=== PATIENT | female | born 1955 | race Caucasian/White ===

== ENCOUNTER 2016-12-24 12:58 | Emergency (ER) | payer BC ==
[~2016-12-24] VITALS: Ht 152.4 cm; Wt 86.0 kg
[~2016-12-24 12:58] MED LIST: LEVO100T48 PO; PRLSR20 PO
[2016-12-24 13:00] VITALS: TEMP 36.7; Ht 152.4 cm; Wt 86.0 kg
[2016-12-24] MEDS ORDERED: LEVO75TA5 PO (15:23)
[2016-12-24] MEDS ORDERED: SERT50TA PO (15:23)
[2016-12-24] MEDS ORDERED: ASPIRIN 324 MG CHEW PO STA (15:25)
[2016-12-24 15:59] VITALS: O2SAT 97
[2016-12-24 16:12] LABS: BASO % 0.4 %; BASO ABS # 0.03 K/uL (0-0.2); COMPLETE YES; EOS % 0.7 %; HEMATOCRIT 39.4 % (37-47); IG% 0.1 %; LYMPH % 28.3 %; LYMPH ABS # 2.03 K/uL (1.2-3.4); MEAN CELL VOLUME 85.8 fL (80-100); MEAN CORPUSCULAR HEMOGLOBIN 28.5 pg (25-34); MEAN CORPUSCULAR HGB CONC 33.2 g/dl (32-36); MONO % 5.7 %; NEUT % 64.8 %; PLATELET COUNT 193 K/uL (130-400); RED BLOOD COUNT 4.59 M/uL (4.2-5.4); WHITE BLOOD COUNT 7.17 K/uL (4.8-10.8)
[2016-12-24 16:15] LABS: POINT OF CARE TROPONIN I 0.01 ng/ml (0-0.045)
[2016-12-24 16:23] LABS: PROTHROMBIN TIME (PATIENT) 10.7 SECONDS (9.0-12.0)
--- NOTE | 2016-12-24 16:39 | DIAGNOSTIC IMAGING REPORT ---
CHEST 2 VIEWS ROUTINE CLINICAL HISTORY: Atypical chest pain COMPARISON STUDY: No previous studies for comparison. FINDINGS: The cardiac and mediastinal contours are normal. There is no evidence of focal pulmonary consolidation. There is no evidence of failure. No pleural effusions are visualized.[ There are minor right basilar atelectatic changes. IMPRESSION: No active disease in the chest. Electronically signed by: Reynaldo Wells M.D. 12/24/2016 4:37 PM Dictated Date/Time: 12/24/2016 4:37 PM
[2016-12-24 16:40] LABS: BUN/CREATININE RATIO 8.8 (10-20); CALCIUM 9.4 mg/dl (8.5-10.1); CREATININE 0.75 mg/dl (0.60-1.20); POTASSIUM 3.9 mmol/L (3.5-5.1)
[2016-12-24 16:51] LABS: ALB/GLOB RATIO 1.1 (0.9-2); CKMB/CK RATIO 1.6 (0-3.0); THYROID STIMULATING HORMONE 0.156 uIu/ml (0.300-4.500)
[2016-12-24] MEDS ORDERED: KETOROLAC TROMETHAMINE 30 MG/ML VIAL IV STA (17:37)
[2016-12-24] MEDS ORDERED: DIAZEPAM INJ 5 MG/ML 2 ML CARP IV STA (17:37)
--- NOTE | 2016-12-24 18:24 | EMERGENCY ROOM VISIT NOTE ---
History First contact with patient: 15:06 Chief Complaint: CARDIAC ASSESSMENT Stated Complaint: PAIN ON LEFT SIDE AND IN L ARM History of Present Illness Patient is a 61-year-old white female with past medical history including hypothyroidism, GERD and anxiety who presents to the emergency department for evaluation of chest pain. Patient states that she woke with a pressure/ heaviness/aching sensation in her left upper chest that radiated to her left arm. She felt some associated lightheadedness, was unsure whether this could be related to slight anxiety. She states that she felt well enough to go to work. The pain was fairly constant throughout the morning, only subsided as she arrived here in the emergency department. At its worst she would've rated it an 8/10. In total she had pain for about 7 hours. She denies any associated nausea, vomiting, cough or sputum production. No palpitations. She tried taking ibuprofen without relief. She is presently on Augmentin for a sinus infection. She does note that she has been short of breath with exertion but this has been for about a month. She attributes this to recent weight gain and deconditioning. She does note being under increased stress recently. She denies any calf or leg pain or swelling. No prolonged immobilization or recent trips. She believes she may have had a stress test done last 10 years. She believes that the workup was negative. She has been having some left shoulder pain of late and had some x-rays at her PCPs office which was negative. She has been receiving weekly back massages, but hasn't had one for about 3 weeks. She does note roughly 60 pound weight gain in the last 3-4 years which she feels may be contributing to her symptoms. Review of Systems Review of systems as per HPI. All other systems reviewed were negative. 10 systems reviewed. Past Medical/Surgical History Medical Problems: (1) Hypothyroidism (2) Midline cystocele (3) Panic attack (4) POSTOP GI FUNCT DIS NEC (5) RECTOCELE (6) Uterine prolapse Surgical Problems: (1) H/O: hysterectomy (2) Vaginal hysterectomy Electronic medical records are reviewed and summarized as above/below. See Problem List. Family History Cancer FHx: gallbladder disease Kidney disease Kidney stones Social History Smoking Status: Never Smoker Alcohol Use: none Marital Status: Housing Status: lives with significant other Occupation Status: employed Current/Historical Medications Scheduled Krill Oil (Krill Oil), 1 CAP PO DAILY Levothyroxine Sodium (Levothyroxine Sodium), 1 TAB PO DAILY Meloxicam (Meloxicam), 1 TAB PO DAILY Omeprazole (Prilosec), 20 MG PO BID Sertraline (Zoloft), 50 MG PO DAILY Allergies Coded Allergies: No Known Allergies (Unverified , 04/29/16) Physical Exam Vital Signs Date Time Temp Pulse Resp B/P Pulse Ox O2 Delivery O2 Flow Rate FiO2 12/24/16 19:02 71 18 116/75 98 12/24/16 17:56 71 18 153/85 97 Room Air 12/24/16 16:25 69 12/24/16 15:59 97 Room Air 12/24/16 15:58 154/87 12/24/16 15:51 73 18 164/98 97 Room Air 12/24/16 13:03 98 Room Air 12/24/16 13:00 36.7 91 18 167/94 98 Room Air Physical Exam CONSTITUTIONAL: Patient is a pleasant, well-appearing 61-year-old white female who is awake and alert and seated on the chair at the bedside in no acute distress. EYES: Pupils equal, round, reactive to light and accommodation. EOMs intact without nystagmus. Sclera are anicteric. ENT: Tympanic membranes intact, with normal landmarks. External canals are clear. Oral and nasopharynx are clear. Mucous membranes are moist, no lesions , tongue and gums appear normal. NECK: No bruits auscultated. Supple without lymphadenopathy. No thyromegaly. No meningeal signs. Full active range of motion without discomfort. CARDIOVASCULAR: Regular rate and rhythm, with normal S1 and S2, no murmur or gallop or rub is heard. No carotid bruits auscultated. No JVD. Peripheral pulses easy to palpable. RESPIRATORY: Breath sounds equal and clear to auscultation without wheezes, rales, or rhonchi heard. Full and equal chest expansion without accessory muscle use or retractions. GI: Bowel sounds are present. Abdomen is soft, nontender, nondistended. No organomegaly. No pulsatile masses. No guarding or rebound. MUSCULOSKELETAL: Full range of motion of extremities x 4 with good strength. No cyanosis, edema, joint tenderness or swelling. No deformity. INTEGUMENTARY: No lesions or rash, normal skin turgor. NEUROLOGICAL: Alert, oriented, and cooperative. Cranial nerves, sensation and strength grossly intact. Pupils round, equal, and react to light, EOMs are full. LYMPH: No lymphadenopathy. Medical Decision & Procedures ER Provider Diagnostic Interpretation: CHEST 2 VIEWS ROUTINE CLINICAL HISTORY: Atypical chest pain COMPARISON STUDY: No previous studies for comparison. FINDINGS: The cardiac and mediastinal contours are normal. There is no evidence of focal pulmonary consolidation. There is no evidence of failure. No pleural effusions are visualized.[ There are minor right basilar atelectatic changes. IMPRESSION: No active disease in the chest. Laboratory Results 12/24/16 15:40 Red Blood Count 4.59, Mean Corpuscular Volume 85.8, Mean Corpuscular Hemoglobin 28.5, Mean Corpuscular Hemoglobin Concent 33.2, Mean Platelet Volume 12.0, Neutrophils (%) (Auto) 64.8, Lymphocytes (%) (Auto) 28.3, Monocytes (%) (Auto) 5.7, Eosinophils (%) (Auto) 0.7, Basophils (%) (Auto) 0.4, Neutrophils # (Auto) 4.64, Lymphocytes # (Auto) 2.03, Monocytes # (Auto) 0.41, Eosinophils # (Auto) 0.05, Basophils # (Auto) 0.03 12/24/16 15:40 Test 12/24/16 15:40 12/24/16 15:55 12/24/16 17:54 White Blood Count 7.17 K/uL (4.8-10.8) Red Blood Count 4.59 M/uL (4.2-5.4) Hemoglobin 13.1 g/dL (12.0-16.0) Hematocrit 39.4 % (37-47) Mean Corpuscular Volume 85.8 fL (80-100) Mean Corpuscular Hemoglobin 28.5 pg (25-34) Mean Corpuscular Hemoglobin Concent 33.2 g/dl (32-36) Platelet Count 193 K/uL (130-400) Mean Platelet Volume 12.0 fL (7.4-10.4) Neutrophils (%) (Auto) 64.8 % Lymphocytes (%) (Auto) 28.3 % Monocytes (%) (Auto) 5.7 % Eosinophils (%) (Auto) 0.7 % Basophils (%) (Auto) 0.4 % Neutrophils # (Auto) 4.64 K/uL (1.4-6.5) Lymphocytes # (Auto) 2.03 K/uL (1.2-3.4) Monocytes # (Auto) 0.41 K/uL (0.11-0.59) Eosinophils # (Auto) 0.05 K/uL (0-0.5) Basophils # (Auto) 0.03 K/uL (0-0.2) RDW Standard Deviation 40.5 fL (36.4-46.3) RDW Coefficient of Variation 12.9 % (11.5-14.5) Immature Granulocyte % (Auto) 0.1 % Immature Granulocyte # (Auto) 0.01 K/uL (0.00-0.02) Prothrombin Time 10.7 SECONDS (9.0-12.0) Prothromb Time International Ratio 1.0 (0.9-1.1) Activated Partial Thromboplast Time 26.1 SECONDS (21.0-31.0) Partial Thromboplastin Ratio 1.0 Anion Gap 8.0 mmol/L (3-11) Est Creatinine Clear Calc Drug Dose 78.7 ml/min Estimated GFR () 101.1 Estimated GFR (Non- 87.2 BUN/Creatinine Ratio 8.8 (10-20) Calcium Level 9.4 mg/dl (8.5-10.1) Total Bilirubin 0.5 mg/dl (0.2-1) Aspartate Amino Transf (AST/SGOT) 17 U/L (15-37) Alanine Aminotransferase (ALT/SGPT) 27 U/L (12-78) Alkaline Phosphatase 90 U/L (45-117) Total Creatine Kinase 64 U/L (26-192) Creatine Kinase MB 1.0 ng/ml (0.5-3.6) Creatine Kinase MB Ratio 1.6 (0-3.0) Total Protein 7.8 gm/dl (6.4-8.2) Albumin 4.1 gm/dl (3.4-5.0) Globulin 3.7 gm/dl (2.5-4.0) Albumin/Globulin Ratio 1.1 (0.9-2) Lipase 125 U/L (73-393) Thyroid Stimulating Hormone (TSH) 0.156 uIu/ml (0.300-4.500) Bedside D-Dimer 419 ng/mlFEU (0-450) Bedside Troponin I 0.020 ng/ml (0-0.045) Medications Administered Medications (Trade) Dose Ordered Sig/Abby Route Start Time Stop Time Status Last Admin Dose Admin Aspirin (Aspirin Chew) 324 mg NOW STAT PO 12/24/16 15:25 12/24/16 15:29 DC 12/24/16 15:48 324 MG Ketorolac Tromethamine (Toradol Inj) 30 mg NOW STAT IV 12/24/16 17:37 12/24/16 17:39 DC 12/24/16 18:28 30 MG Diazepam (Valium Inj) 2.5 mg NOW STAT IV 12/24/16 17:37 12/24/16 17:39 DC 12/24/16 18:27 2.5 MG ECG Indication: chest pain Rate (beats per minute): 70 Rhythm: normal sinus Findings: no acute ischemic change, no ectopy Change: no significant change ED Course The patient was seen and evaluated as above. Her old records were reviewed. IV access was obtained, laboratory studies were performed, EKG was obtained and she was placed on a cardiac rehabilitation program director. Laboratory studies were performed including CBC with differential, coags, Cardec enzymes, CMP, TSH, lipase and troponin 2, and [id number] d-dimer. She was chest pain-free at the time of my examination. The patient was given aspirin 325 mg orally. She later complained of a headache and was given Toradol 30 mg IV and Valium 2.5 mg IV. Patient EKG did not demonstrate any acute ischemic changes. Chest x-ray was obtained and was unremarkable. Laboratory studies Revealed a normal white count. She is not anemic. Electrolytes are within normal limits. Liver functions are not elevated. CK and CK-MB are normal. [id number]-[id number] troponin 2 are not indicative of acute ischemic process. TSH is slightly low. Coags are within normal limits. Cpwms-li-khcm d-dimer was not elevated, therefore further workup for PE was not pursued. All laboratory and diagnostic imaging studies were discussed with attending physician, and reviewed with the patient at length. Her ED workup did not demonstrate ACS or acute PR. She has been experiencing what sounds like some left-sided musculoskeletal shoulder pain. She also reports a lot of tension in her neck and back, which she attributes to her breast size. Her pain may be musculoskeletal in nature. Certainly given her age and other risk factors however she will likely benefit from further evaluation and likely stress test. She has no appointment with her PCP in 3 days. She was encouraged to keep this, however was advised to return to the emergency department at any point over the weekend if her symptoms return or worsen. The patient was discharged home in good condition with her driving. Differential diagnosis includes acute myocardial infarction, acute coronary syndrome, myocarditis, pericarditis, pericardial effusions /tamponade, esophageal perforation, pulmonary embolism, pneumonia, pneumothorax, cardiomyopathy, congestive heart failure, anemia , COPD/asthma exacerbation, musculoskeletal, anxiety, costochondritis,. Medical Decision See ED Course. Impression Primary Impression: Precordial chest pain Departure Information Referrals Araceli Valdes M.D. (PCP) Patient Instructions [facility] Additional Instructions DO NOT drive, drink alcohol, operate machinery, or perform dangerous activities today. You were given medications in the ER that can affect your ability to safely function or operate a vehicle. Ibuprofen(Motrin, Advil) may be used for fever or pain. Use 600mg every six hours as needed. Take with food. Avoid using more than 2400mg in a 24 hour period. Do not use 2400mg per day for more than three consecutive days without physician direction. Prolonged inappropriate use can lead to stomach upset or ulcers. (AND/OR) Acetaminophen(Tylenol) may be used for fever or pain. Use 1000mg every six hours as needed. Avoid using more than 3000mg in a 24 hour period. Rest and drink plenty of fluids as tolerated. Continue current medications. Avoid strenuous activities and anything that worsens your pain. Resume normal activities once your symptoms resolve. Return to the ER immediately for worsening or persistent chest pain, abdominal pain, vomiting, fevers, chest pains, difficulty breathing, worsening of your condition, or as needed. Follow up with your primary physician as you have scheduled on Tuesday for a recheck of your current condition.
[2016-12-24 19:02] VITALS: BP 116/75; PULSE 71; O2SAT 98
[2016-12-24] MEDS ORDERED: KRIL1CAP3 PO (21:19)
[2016-12-24] MEDS ORDERED: MELO15TA4 PO (21:19)
== END 2016-12-24 19:03 | disposition home or self-care (01) ==
LOC: C.EDB 12:59
DX: R07.2 Precordial pain (principal); Z84.1 Family history of disorders of kidney and ureter; E03.9 Hypothyroidism, unspecified; K21.9 Gastro-esophageal reflux disease without esophagitis; F41.0 Panic disorder [episodic paroxysmal anxiety]; N81.4 Uterovaginal prolapse, unspecified

== ENCOUNTER → 2018-04-13 | Outpatient (CLI) | payer OTHER ==
[~2018-04-13] MED LIST changes: +KRIL1CAP3 PO; -LEVO100T48 PO; +LEVO75TA5 PO; +MELO-83 PO; +SERT50TA PO
--- NOTE | 2018-04-13 13:35 | DIAGNOSTIC IMAGING REPORT ---
L KNEE 1 OR 2 VIEWS ROUTINE CLINICAL HISTORY: M17.10 UNILATERAL PRIMARY OSTEOARTHRITIS LEFT KNEE PAIN COMPARISON: None. DISCUSSION: No fractures or dislocations are visualized. There is minor medial joint compartment narrowing. IMPRESSION: Minor degenerative change. No fractures are visualized. Electronically signed by: Reynaldo Wells M.D. 04/13/2018 1:34 PM Dictated Date/Time: 04/13/2018 1:33 PM
== END | disposition home or self-care (01) ==
LOC: C.RAD1850 13:03
PROVIDERS: ATTEND Family Medicine
DX: M17.10 Unilateral primary osteoarthritis, unspecified knee (principal)

== ENCOUNTER 2020-01-10 11:02 | Observation (INO) ==
--- OUTSIDE RECORDS SUMMARY | 2020-01-10 11:04 | External Medical Summary | Continuity of Care Document ---
:1955 Author Name Christy Mas, Provider Address Unavailable Unavailable , Care Team Providers Name Role Phone Maria Luz Mas, Mor Unavailable [email or web address] PCP, NO Unavailable Unavailable Problems Active medical history not documented Allergies and Adverse Reactions Allergy history not documented Medications Medications not documented Procedures Procedures not documented Immunizations Immunizations not documented Plan of Treatment Planned Observations Planned Goals not documented Results No Known Results Results not documented
[2020-01-10] MEDS ORDERED: ASPIRIN 81 MG CHEW PO STA (11:18)
[2020-01-10] MEDS ORDERED: NITROGLYCERIN 2% OINTMENT 30GM TUBE EXT ONE (11:18)
[2020-01-10] MEDS ORDERED: MoRPHine SULFATE 4 MG/ML 1 ML CARP\\VIAL IV STA (11:18)
[2020-01-10] MEDS ORDERED: ONDANSETRON INJ 2 MG/ML 2 ML VIAL IV STA (11:22)
[2020-01-10 11:32] LABS: Basophils # (auto) 0.03 K/uL (0-0.2); Basophils % (auto) 0.4 %; Eosinophils # (auto) 0.17 K/uL (0-0.5); Eosinophils % (auto) 2.4 %; Hemoglobin 13.5 g/dL (12.0-16.0); Immature Granulocytes # (auto) 0.02 K/uL (0.00-0.02); Immature Granulocytes % (auto) 0.3 %; Lymphocytes # (auto) 1.89 K/uL (1.2-3.4); Lymphocytes % (auto) 26.7 %; Mean Corpuscular Hemoglobin 29.3 pg (25-34); Mean Corpuscular Hgb Conc 32.9 g/dL (32-36); Mean Corpuscular Volume 89.1 fL (80-100); Mean Platelet Volume 11.4 fL (7.4-10.4); Monocytes # (auto) 0.54 K/uL (0.11-0.59); Monocytes % (auto) 7.6 %; Neutrophils # (auto) 4.42 K/uL (1.4-6.5); Neutrophils % (auto) 62.6 %; Platelet Count 180 K/uL (130-400); RDW Coefficient of Variation 12.7 % (11.5-14.5); RDW Standard Deviation 40.5 fL (36.4-46.3); White Blood Count 7.07 K/uL (4.8-10.8)
--- NOTE | 2020-01-10 11:32 | XRay Report ---
XR chest 1V portable CLINICAL HISTORY: 64 years-old Female presenting with chest pain. TECHNIQUE: Portable upright AP view of the chest was obtained. COMPARISON: 12/24/2016. FINDINGS: Cardiomediastinal silhouette normal. Minimal bandlike opacities in the lower lung similar to prior. N o new focal opacity. No large effusion or pneumothorax. Osseous structures normal. Upper abdomen norm al. IMPRESSION: 1. No acute cardiopulmonary disease. ACT 112: Negative or not required by law. Electronically signed by: Chidi Eaton M.D. 01/10/2020 11:30 AM
--- NOTE | 2020-01-10 11:32 | Emergency Department Note ---
History of Present Illness General Chief complaint: Cardiac Assessment Stated complaint: CHEST PRESSURE, L ARM PAIN Time Seen by Provider: 01/10/20 11:09 History of Present Illness Maximum Pain Intensity: 5 This is a 64-year-old female that presents to the emergency department via private vehicle with complaints of "chest pressure, left arm". The patient states that just over a week ago she had 3 episodes where the left anterior chest felt odd/achy and that went to the left arm. She states that this has happened several times. She also notes she is under increased rest. She has a history of hypertension as well as high cholesterol. She denies any true pain but rather describes it as a numbness/dull/achiness. She then states this morning she was at work, and then developed the same sensation but now to the right arm. The arms feel very heavy. She was concerned therefore prompting arrival here today. The discomfort is rated as a 5/10. No personal history of NH or PE. Home Medications Home Medications Medication Instructions Recorded Confirmed Type aspirin 81 mg tablet,delayed 81 mg PO QAM 11/06/19 01/10/20 History release cyclobenzaprine 10 mg PO BID PRN 01/10/20 01/10/20 History diazepam 5 mg PO BID PRN 01/10/20 01/10/20 History levothyroxine [Synthroid] 88 mcg PO QAM 01/10/20 01/10/20 History meloxicam 15 mg PO QAM 01/10/20 01/10/20 History metoprolol succinate 25 mg PO QAM 01/10/20 01/10/20 History omeprazole 20 mg PO BID 01/10/20 01/10/20 History sertraline 50 mg PO HS 01/10/20 01/10/20 History Allergies Allergy/AdvReac Type Severity Reaction Status Date / Time No Known Allergies Allergy Unverified 01/10/20 12:01 Past Med/Surg History Medical History Depression High blood pressure Hypothyroid IBS (irritable bowel syndrome) Osteoarthritis of knees, bilateral Surgical History History of breast mammoplasty History of hysterectomy Family History Other Cancer Fibromyalgia Lupus Social History Smoking Status: Former smoker Hx Alcohol Use: No Hx Substance Use: No Review of Systems A total of 10 systems reviewed and were otherwise negative Physical Exam Vital Signs Vital Signs - 24 hr 01/10/20 11:05 01/10/20 11:21 01/10/20 11:30 Temperature 36.4 C L Temperature Source Oral Pulse Rate 91 H 82 82 Pulse Rate from SpO2 Sensor 76 Pulse Rhythm Respiratory Rate 20 17 16 Respiratory Effort / Characteristics Non-Labored Spontaneous Respiratory Depth Normal Respiratory Pattern Regular Blood Pressure 207/93 H Blood Pressure [Right Arm] Blood Pressure Mean 131 Blood Pressure Mean [Right Arm] Pulse Oximetry 99 97 Oxygen Delivery Method Room Air Sepsis Recent Fever Within 48 Hours No Sepsis New/Unexplained Change in Mental Status No Sepsis Action Taken by Nursing No Action Required 01/10/20 11:45 01/10/20 11:46 01/10/20 11:49 Temperature Temperature Source Pulse Rate 80 80 84 Pulse Rate from SpO2 Sensor 80 78 Pulse Rhythm Regular Respiratory Rate 19 15 Respiratory Effort / Characteristics Respiratory Depth Respiratory Pattern Blood Pressure 144/81 H Blood Pressure [Right Arm] Blood Pressure Mean 96 Blood Pressure Mean [Right Arm] Pulse Oximetry 96 96 96 Oxygen Delivery Method Room Air Sepsis Recent Fever Within 48 Hours Sepsis New/Unexplained Change in Mental Status Sepsis Action Taken by Nursing 01/10/20 12:09 01/10/20 12:26 01/10/20 12:30 Temperature Temperature Source Pulse Rate 89 80 Pulse Rate from SpO2 Sensor 83 82 Pulse Rhythm Respiratory Rate 15 14 Respiratory Effort / Characteristics Respiratory Depth Respiratory Pattern Blood Pressure 173/78 H Blood Pressure [Right Arm] Blood Pressure Mean 100 Blood Pressure Mean [Right Arm] Pulse Oximetry 93 96 97 Oxygen Delivery Method Room Air Sepsis Recent Fever Within 48 Hours Sepsis New/Unexplained Change in Mental Status Sepsis Action Taken by Nursing 01/10/20 12:31 01/10/20 13:00 01/10/20 13:24 Temperature Temperature Source Pulse Rate 89 81 Pulse Rate from SpO2 Sensor 89 82 Pulse Rhythm Respiratory Rate 17 16 Respiratory Effort / Characteristics Respiratory Depth Respiratory Pattern Blood Pressure Blood Pressure [Right Arm] 161/82 H Blood Pressure Mean Blood Pressure Mean [Right Arm] 108 Pulse Oximetry 98 96 Oxygen Delivery Method Sepsis Recent Fever Within 48 Hours Sepsis New/Unexplained Change in Mental Status Sepsis Action Taken by Nursing VITAL SIGNS - Vital signs and nursing notes were reviewed. Significantly hypertensive. Afebrile. GENERAL -64 [id number] appearing her stated age who is in no acute distress. Communicates well with provider and answers questions appropriately. SKIN - Without rashes. No meningeal or petechial rash. HEAD - NC/AT. EYES - PERRL with EOMI bilaterally. Sclera anicteric. EARS - No deformities of external structures noted on gross examination bilaterally. NOSE - Midline and without cyanosis. No epistaxis or purulent drainage noted. MOUTH/OROPHARYNX - Without perioral cyanosis. NECK - Neck with FROM.No nuchal rigidity. LUNGS - Chest wall symmetric without accessory muscle use, intercostals retractions, or central cyanosis. Normal vesicular breath sounds CTA B/L. No wheezes, rales, or rhonchi appreciated. CARDIAC - RRR with S1/S2. No murmur, rubs, or gallops appreciated. ABDOMEN - Abdominal contour normal without pulsations or visible masses. BS normoactive all four quadrants. No tenderness, palpable masses, hepatosplenomegaly, or ascites noted. EXTREMITIES - No clubbing or peripheral cyanosis. No pretibial edema present. +5/5 strength noted in UE/LE bilaterally. NEUROLOGIC - Cranial nerves II through XII grossly intact. PSYCH - A&O, and cooperates fully with examiner. Pt is very pleasant and interacts well with examiner. Course Administered Medications Ioversol (Optiray 320 125ml) 120 ml IV ONCE PRN PRN Reason: Interaction Checking Stop: 01/14/20 12:00 Last Admin: 01/10/20 12:02 Dose: 120 ml Documented by: [id number] Discontinued Medications Aspirin (Aspirin Chew) 243 mg PO NOW STA Stop: 01/10/20 11:19 Last Admin: 01/10/20 11:37 Dose: 243 mg Documented by: [id number] Morphine Sulfate (Morphine Sulfate) 4 mg IV NOW STA Stop: 01/10/20 11:19 Last Admin: 01/10/20 11:36 Dose: 4 mg Documented by: [id number] Nitroglycerin (Nitro-Bid 2%) 0.5 inch EXT NOW ONE Stop: 01/10/20 11:19 Last Admin: 01/10/20 11:50 Dose: Not Given Documented by: [id number] Ondansetron HCl (Zofran) 4 mg IV NOW STA Stop: 01/10/20 11:23 Last Admin: 01/10/20 11:42 Dose: 4 mg Documented by: [id number] Medical Decision Making Laboratory Data Result diagrams: 01/10/20 11:20 01/10/20 11:20 Lab Results 01/10/20 01/10/20 01/10/20 Range/Units 11:20 11:20 11:20 WBC 7.07 (4.8-10.8) K/uL RBC 4.60 (4.2-5.4) M/uL Hgb 13.5 (12.0-16.0) g/dL Hct 41.0 (37-47) % MCV 89.1 (80-100) fL MCH 29.3 (25-34) pg MCHC 32.9 (32-36) g/dL RDW Std Deviation 40.5 (36.4-46.3) fL RDW Coeff of Eve 12.7 (11.5-14.5) % Plt Count 180 (130-400) K/uL MPV 11.4 H (7.4-10.4) fL Immature Gran % (Auto) 0.3 % Neut % (Auto) 62.6 % Lymph % (Auto) 26.7 % [place] % (Auto) 7.6 % Eos % (Auto) 2.4 % Baso % (Auto) 0.4 % Immature Gran # (Auto) 0.02 (0.00-0.02) K/uL Neut # (Auto) 4.42 (1.4-6.5) K/uL Lymph # (Auto) 1.89 (1.2-3.4) K/uL [place] # (Auto) 0.54 (0.11-0.59) K/uL Eos # (Auto) 0.17 (0-0.5) K/uL Baso # (Auto) 0.03 (0-0.2) K/uL PT 10.3 (9.0-12.0) Seconds INR 1.0 (0.9-1.1) APTT 24.8 (21.0-31.0) Seconds PTT Ratio 0.9 D-Dimer 1140 H* (0-500) ug/L FEU Sodium 140 (136-145) mmol/L Potassium 3.8 (3.5-5.1) mmol/L Chloride 106 (98-107) mmol/L Carbon Dioxide 28 (21-32) mmol/L Anion Gap 6.0 (3-11) BUN 13 (7-18) mg/dl Creatinine 0.87 (0.6-1.2) mg/dl Est Cr Clr Drug Dosing 64.8 ml/min Est GFR ( Amer) 82.8 Est GFR (Non-Af Amer) 71.4 BUN/Creatinine Ratio 15.2 (10-20) Glucose 108 H (70-99) mg/dl Calcium 9.4 (8.5-10.1) mg/dl Magnesium 2.0 (1.8-2.4) mg/dl Total Bilirubin 0.5 (0.2-1) mg/dl AST 21 (15-37) U/L ALT 25 (12-78) U/L Alkaline Phosphatase 88 (45-117) U/L Troponin I < 0.015 (0-0.045) ng/ml Total Protein 8.1 (6.4-8.2) gm/dl Albumin 4.1 (3.4-5.0) gm/dl Globulin 4.0 (2.5-4.0) gm/dl Albumin/Globulin Ratio 1.0 (0.9-2) Lipase 109 (73-393) U/L TSH 2.520 (0.300-4.500) uIu/ml Imaging Data Radiologist's Impression: XR chest 1V portable CLINICAL HISTORY: 64 years-old Female presenting with chest pain. TECHNIQUE: Portable upright AP view of the chest was obtained. COMPARISON: 12/24/2016. FINDINGS: Cardiomediastinal silhouette normal. Minimal bandlike opacities in the lower lung similar to prior. No new focal opacity. No large effusion or pneumothorax. Osseous structures normal. Upper abdomen normal. IMPRESSION: 1. No acute cardiopulmonary disease. ACT 112: Negative or not required by law. Electronically signed by: Chidi Eaton M.D. 01/10/2020 11:[address] ANGIOGRAM OF THE CHEST CLINICAL HISTORY: Dyspnea. Typical chest pain. COMPARISON STUDY: Chest x-ray dated 01/10/2020. TECHNIQUE: Following the IV administration of 120 cc of Optiray 320, CT angiogram of the chest was performed from the upper abdomen to the thoracic inlet utilizing the pulmonary embolus protocol. Images are reviewed in the axial, sagittal, and coronal planes. 3-D MIPS images are created and assessed. IV contrast was administered without complication. A dose lowering technique was utilized adhering to the principles of ALARA. CT DOSE: 626.45 mGy.cm FINDINGS: Thyroid: Atrophic. Thoracic aorta: The thoracic aorta is normal in caliber and demonstrates bovine variant arch anatomy. No dissection is seen. Pulmonary vasculature: The pulmonary trunk is normal in caliber. There are no filling defects identified in main, lobar, or segmental pulmonary branches to suggest pulmonary embolus. Heart: The heart is top normal in size and without pericardial effusion. Lungs and pleural spaces: There is bibasilar atelectasis. No airspace consolidation or pleural effusion is identified. The trachea and central airways are clear. Mediastinum: There is no mediastinal lymphadenopathy. Yenni: Clear. Axillae: There is no axillary lymphadenopathy. Upper abdomen: Partially visualized upper abdominal viscera is within normal limits. Skeletal structures: The skeletal structures are osteopenic. A large hemangioma is seen in the body of T10. No lytic or blastic bony lesions are seen. IMPRESSION: 1. There is no evidence of pulmonary embolus in the main, lobar, or segmental pulmonary arteries. 2. There is no airspace consolidation or pleural effusion. ACT 112: Negative or not required by law. Electronically signed by: Aaron Barker M.D. 01/10/2020 12:14 PM [facility] Narrative Patient was seen and evaluated as above in room C06. Review was performed of nursing notes and vital signs. After obtaining a thorough history and physical examination the above work up was performed. She presents to us today with some achiness in the left side of the chest that radiates to the left arm and on the right arm. Patient has a heart score of 4 on arrival. Patient's EKG reveals normal sinus rhythm at a rate of 70 bpm. There is no ectopy or ischemic change. No evidence of NH. No ST elevation. QTc is 425. A chest x-ray was obtained and is as above. This is negative. She was initially given 243 mg of aspirin noting that she already had 81 mg prior to arrival to equal a full dose, as well as Nitropaste, morphine were ordered. She declined the Nitropaste but was given morphine. Her symptoms were very minimal at that time. There was no chest pain. CBC reveals no leukocytosis or anemia. No emergent metabolic disturbance. D-dimer is 1140. No metabolic concern. Troponin initially negative. Lipase and TSH normal. CTA as above. This was negative. I am still concerned for possible unstable angina and she was very hypertensive on arrival but did trend towards normal range. I feel that with a heart score of 4 and the presentation further evaluation and management in the inpatient setting is warranted. Patient was in agreement with plan of care. Case discussed with the hospitalist. Please refer to further documentation regarding her stay. Case was discussed with the attending physician. GCS: 15 In the evaluation and treatment of this patient, the following differential diagnoses were considered: NH, ASC, Dysrhythmia, Angina, Mediastinitis, GERD, Esophagitis, PE, Pneumonia, Bronchitis, Costochondritis, Rib Fracture, Zoster. Impression & Plan Chest discomfort, Arm pain, left Discharge Plan Visit Data Chief Complaint: Cardiac Assessment Stated Complaint: CHEST PRESSURE, L ARM PAIN ED Provider: Carl Rosas ED Midlevel Provider: Pancho Soria Discharge Problem: Chest discomfort, Arm pain, left Patient Disposition: Admitted As Inpatient Condition: Good Forms Stand Alone Forms: [facility] Prescriptions Prescriptions: No Action aspirin 81 mg tablet,delayed release (DR/EC) 81 mg PO QAM RF: 0 cyclobenzaprine 10 mg tablet 10 mg PO BID PRN (Reason: Muscle Spasm) RF: 0 meloxicam 15 mg tablet 15 mg PO QAM RF: 0 omeprazole 20 mg capsule,delayed release(DR/EC) 20 mg PO BID RF: 0 metoprolol succinate 25 mg tablet extended release 24 hr 25 mg PO QAM RF: 0 sertraline 50 mg tablet 50 mg PO HS RF: 0 diazepam 5 mg tablet 5 mg PO BID PRN (Reason: Anxiety) RF: 0 levothyroxine [Synthroid] 88 mcg tablet 88 mcg PO QAM RF: 0 Referrals Referrals: Araceli Valdes MD [Primary Care Provider] -
[2020-01-10 11:45] LABS: Partial Thromboplastin Ratio 0.9; Partial Thromboplastin Time 24.8 Seconds (21.0-31.0); Prothrombin Time 10.3 Seconds (9.0-12.0)
[2020-01-10 11:47] LABS: D Dimer 1140 ug/L FEU (0-500)
[2020-01-10 11:53] LABS: Alanine Aminotransferase 25 U/L (12-78); Albumin Level 4.1 gm/dl (3.4-5.0); Aspartate Aminotransferase 21 U/L (15-37); BUN Creatinine Ratio 15.2 (10-20); Blood Urea Nitrogen 13 mg/dl (7-18); Calcium 9.4 mg/dl (8.5-10.1); Carbon Dioxide 28 mmol/L (21-32); Chloride 106 mmol/L (98-107); Creatinine Clr Calc Pharmacy 64.8 ml/min; Est GFR (African American) 82.8; Est GFR (Non-African American) 71.4; Glucose 108 mg/dl (70-99); Lipase 109 U/L (73-393); Potassium 3.8 mmol/L (3.5-5.1); Sodium 140 mmol/L (136-145)
[2020-01-10] MEDS ORDERED: OPTIRAY 320 125ml IV PRN (12:01)
[2020-01-10 12:03] LABS: Alkaline Phosphatase 88 U/L (45-117); Bilirubin,Total 0.5 mg/dl (0.2-1); Total Protein 8.1 gm/dl (6.4-8.2); Troponin I < 0.015 ng/ml (0-0.045)
--- NOTE | 2020-01-10 12:16 | CT Scan Report ---
CT ANGIOGRAM OF THE CHEST CLINICAL HISTORY: Dyspnea. Typical chest pain. COMPARISON STUDY: Chest x-ray dated 01/10/2020. TECHNIQUE: Following the IV administration of 120 cc of Optiray 320, CT angiogram of the chest was pe rformed from the upper abdomen to the thoracic inlet utilizing the pulmonary embolus protocol. Images are reviewed in the axial, sagittal, and coronal planes. 3-D MIPS images are created and assessed. I V contrast was administered without complication. A dose lowering technique was utilized adhering to the principles of ALARA. CT DOSE: 626.45 mGy.cm FINDINGS: Thyroid: Atrophic. Thoracic aorta: The thoracic aorta is normal in caliber and demonstrates bovine variant arch anatomy. No dissection is seen. Pulmonary vasculature: The pulmonary trunk is normal in caliber. There are no filling defects identif ied in main, lobar, or segmental pulmonary branches to suggest pulmonary embolus. Heart: The heart is top normal in size and without pericardial effusion. Lungs and pleural spaces: There is bibasilar atelectasis. No airspace consolidation or pleural effusi on is identified. The trachea and central airways are clear. Mediastinum: There is no mediastinal lymphadenopathy. Yenni: Clear. Axillae: There is no axillary lymphadenopathy. Upper abdomen: Partially visualized upper abdominal viscera is within normal limits. Skeletal structures: The skeletal structures are osteopenic. A large hemangioma is seen in the body o f T10. No lytic or blastic bony lesions are seen. IMPRESSION: 1. There is no evidence of pulmonary embolus in the main, lobar, or segmental pulmonary arteries. 2. There is no airspace consolidation or pleural effusion. ACT 112: Negative or not required by law. Electronically signed by: Aaron Barker M.D. 01/10/2020 12:14 PM
--- NOTE | 2020-01-10 14:40 | Electrocardiogram Report ---
Test Reason : Blood Pressure : / mmHG Vent. Rate : 070 BPM Atrial Rate : 070 BPM P-R Int : 138 ms QRS Dur : 096 ms QT Int : 394 ms P-R-T Axes : 061 004 033 degrees QTc Int : 425 ms Normal sinus rhythm Normal ECG When compared with ECG of 24-DEC-2016 13:05, No significant change was found Confirmed by James Edwards ([id number]) on 01/10/2020 2:40:52 PM Referred By: Confirmed By:James Edwards
--- NOTE | 2020-01-10 15:18 | History & Physical Report ---
Date of Service January 10, 2020 Assessment & Plan (1) Atypical chest pain: Admits to PCU on telemetry for observation. Vital signs every 4 hours. Monitor electrolytes and blood pressure Troponin x3 with EKG to rule out acute coronary syndrome. First troponin negative. EKG normal sinus rhythm without changes when compared to December 24, 2016. PT prophylaxis Lovenox 40 mg daily subacute. TTE pending Full code Consider consulting cardiology if troponin rising or changes on EKG. Present on Admission?: Yes (2) Hypertensive urgency: Continue monitoring blood pressure. Continue home medicine aspirin 81 mg p.o. every morning, Patient received a full dose in the emergency room of aspirin. Continue metoprolol 25 mg p.o. every morning. Present on Admission?: Yes (3) Hypothyroidism: TSH normal. Continue continue levothyroxine 88 MCG's p.o. every morning. Present on Admission?: Yes (4) Prediabetes: A1c pending. Continue controlling diabetes or prediabetes with diet for now. Patient is not on any medication for diabetes at home. Present on Admission?: Yes (5) Hypercholesterolemia: Fasting lipid panel pending. Patient stated that she has elevated cholesterol but does not take any medication for it. Present on Admission?: Yes (6) Neck pain: Patient states that she has chronic neck pain. She saw chiropractor in the past. Per patient cyclobenzaprine did not help. She also reports that meloxicam helps somewhat. Continue meloxicam 15 mg p.o. every morning. We will try pain management while in the hospital. Commended to continue with chiropractor. Ordered x-rays of the cervical spine, result pending. Present on Admission?: Yes (7) Depression: Stable, continue sertraline 50 mg p.o. nightly. Present on Admission?: Yes (8) GERD (gastroesophageal reflux disease): Stable, continue omeprazole 20 mg p.o. twice daily. Present on Admission?: Yes History of Present Illness Chief Complaint: Chest pain Primary Care Provider: Araceli Valdes MD The patient is a 65 years old female with past medical history of obesity, hypertension, panic disorder, claustrophobia, hyperlipidemia, hypothyroidism ,p rediabetes who presents to the emergency room with a complaint of chest pain or rather discomfort that started this morning while patient felt very tense and lasted for 20 minutes. 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 Patient states that was seen chiropractor in the past and that her PCP recommended her to start on cyclobenzaprine for neck pain. Patient states that her claustrophobia is very severe and that she organize her life around not to ever being transported in the elevators since that is causing severe aggravation of her claustrophobia. Other than this patient reports being healthy. The chest pain patient describes as radiating to her both arms left and right and it was worse when she was putting her hands or arms down next to her body and it would alleviate if she keeps them above her head. Patient denies any recent trauma or injury or accident. After arriving to the emergency room patient had episode of elevated blood pressure of 207/93. Patient denies fever, chills, headache, shortness of breath, abdominal pain, frequency, urgency. Labs are reviewed: BC 7.07, hemoglobin 13.5, hematocrit 41, platelets 180, PT 10.3, INR 1, APTT 24.8, d-dimer 1140, sodium 140, potassium 3.8, chloride 106, carbon dioxide 28, anion gap 6, BUN 13, creatinine 0.87, GFR 71.4, glucose 108, calcium 9.4, magnesium 2, AST 21, ALT 25, alkaline phosphatase 88, troponins 0.015, Albumin 4.1, globulin 4, lipase 109, TSH 2.52. CTA of the chest :no evidence of pulmonary embolus in the main, lobar or segmental pulmonary arteries. There is no airspace consolidation pulmonary effusion. Decision was made to admit patient to PCU on telemetry for observation and to rule out atypical chest pain versus acute coronary syndrome. Allergies Allergy/AdvReac Type Severity Reaction Status Date / Time No Known Allergies Allergy Unverified 01/10/20 12:01 Home Medications Home Medications Medication Instructions Recorded Confirmed Type aspirin 81 mg tablet,delayed 81 mg PO QAM 11/06/19 01/10/20 History release cyclobenzaprine 10 mg PO BID PRN 01/10/20 01/10/20 History diazepam 5 mg PO BID PRN 01/10/20 01/10/20 History levothyroxine [Synthroid] 88 mcg PO QAM 01/10/20 01/10/20 History meloxicam 15 mg PO QAM 01/10/20 01/10/20 History metoprolol succinate 25 mg PO QAM 01/10/20 01/10/20 History omeprazole 20 mg PO BID 01/10/20 01/10/20 History sertraline 50 mg PO HS 01/10/20 01/10/20 History Past Med/Surg History Medical History Depression High blood pressure Hypothyroid IBS (irritable bowel syndrome) Osteoarthritis of knees, bilateral Surgical History History of breast mammoplasty History of hysterectomy Family History Other Cancer Fibromyalgia Lupus Social History Smoking Status: Former smoker Hx Alcohol Use: No Hx Substance Use: No Review of Systems Review of Systems: All systems reviewed & are unremarkable except as noted in HPI & below Physical Exam Constitutional: WD/WN, vitals as above well developed and + obese Eyes: PERRL, conjunctivae normal, anicteric sclerae ENMT: external ear and nose normal, oropharynx normal Neck: trachea midline, no thyromegaly Respiratory: normal respiratory effort, lungs clear to auscultation Cardiovascular: RRR, no murmur, no edema Gastrointestinal (Abdomen): normal bowel sounds, soft, nontender, no hepatosplenomegaly Musculoskeletal: no cyanosis or clubbing, extremities motor strength 5/5 Skin: no rashes, warm and dry Neurologic: patellar DTR's 2+ bilat, sensation intact Psychiatric: A+Ox3, euthymic affect Lymphatic: no cervical or axillary lymphadenopathy Results & Data Vital Signs (Past 12 Hours) Vital Signs Temp Pulse Resp BP BP Pulse Ox 01/10/20 13:24 161/82 H 01/10/20 13:00 81 16 96 01/10/20 12:31 89 17 98 01/10/20 12:30 80 14 173/78 H 97 01/10/20 12:26 96 01/10/20 12:09 89 15 93 01/10/20 11:49 84 96 01/10/20 11:46 80 15 96 01/10/20 11:45 80 19 144/81 H 96 01/10/20 11:30 82 16 97 01/10/20 11:21 82 17 01/10/20 11:05 36.4 C L 91 H 20 207/93 H 99 Code Status & VTE Plan Code Status Full code VTE Prophylaxis Plan VTE Prophylaxis will be ordered: Yes PG Care Time/CCT Total # of Minutes Spent Total Time Spent with Patient: Total time spent is greater than 50% in coordination of care (as documented) at patient's floor/unit and/or counseling patient: Coding Level of Care Code 96686 Initial Inpt Care Lvl 3 Diagnoses Atypical chest pain R07.89 Hypertensive urgency I16.0 Hypothyroidism E03.9 Prediabetes R73.03 Hypercholesterolemia E78.00 Neck pain M54.2 Depression F32.9 GERD (gastroesophageal reflux disease) K21.9
[2020-01-10] MEDS ORDERED: POLYETHYLENE (MIRALAX) 17 GM PACK PO PRN (17:13)
[2020-01-10] MEDS ORDERED: HydrALAZINE 10 MG TAB PO PRN (17:13)
[2020-01-10] MEDS ORDERED: MAGNESIUM HYDROXIDE SUSP 30 ML UDC PO PRN (17:13)
[2020-01-10] MEDS ORDERED: MoRPHine SULFATE 2 MG/ML CARP IV PRN (17:13)
[2020-01-10] MEDS ORDERED: NITROGLYCERIN SL 0.4 MG/TAB TAB SL PRN (17:13)
[2020-01-10] MEDS ORDERED: diazePAM 5 MG TABLET PO PRN (17:13)
[2020-01-10] MEDS ORDERED: ALUMINUM/MAGNESIUM SUSP 30 ML UDC PO PRN (17:13)
[2020-01-10] MEDS ORDERED: KETOROLAC TROMETHAMINE 15 MG/ML VIAL IV PRN (17:13)
[2020-01-10] MEDS ORDERED: ONDANSETRON INJ 2 MG/ML 2 ML VIAL IV PRN (17:13)
[2020-01-10 17:37] LABS: Basophils # (auto) 0.04 K/uL (0-0.2); Basophils % (auto) 0.4 %; Eosinophils % (auto) 2.2 %; Hematocrit (blood only) 40.8 % (37-47); Hemoglobin 13.7 g/dL (12.0-16.0); Immature Granulocytes # (auto) 0.02 K/uL (0.00-0.02); Immature Granulocytes % (auto) 0.2 %; Lymphocytes # (auto) 2.94 K/uL (1.2-3.4); Lymphocytes % (auto) 32.9 %; Mean Corpuscular Hemoglobin 29.3 pg (25-34); Mean Corpuscular Hgb Conc 33.6 g/dL (32-36); Mean Corpuscular Volume 87.4 fL (80-100); Mean Platelet Volume 11.6 fL (7.4-10.4); Monocytes % (auto) 7.8 %; Neutrophils # (auto) 5.03 K/uL (1.4-6.5); Neutrophils % (auto) 56.5 %; Platelet Count 215 K/uL (130-400); RDW Coefficient of Variation 12.8 % (11.5-14.5); RDW Standard Deviation 40.7 fL (36.4-46.3); Red Blood Count 4.67 M/uL (4.2-5.4); White Blood Count 8.93 K/uL (4.8-10.8)
[2020-01-10] MEDS: LIDOCAINE 5% 1 PATCH TD SCH (18:13)
[2020-01-10] MEDS: ASPIRIN 81 MG ECTAB PO SCH (18:14)
[2020-01-10] MEDS: METOPROLOL SUCC 25MG EXT REL TAB PO SCH (18:15)
--- NOTE | 2020-01-10 18:22 | XRay Report ---
XR cervical spine 2 or 3V CLINICAL HISTORY: neck pain COMPARISON STUDY: No previous studies for comparison. FINDINGS: Slight reversal of the normal cervical lordosis is noted. There is minimal anterolisthesis of C4 and C5. There is moderate to severe disc space narrowing and osteophytosis at C5-C6 and C6-C7. No fracture is identified IMPRESSION: 1. No cervical spine fracture or subluxation identified. 2. Moderate to severe multilevel degenerative disc disease and facet arthrosis within the cervical sp ine. ACT 112: Negative or not required by law. Electronically signed by: Arturo Montalvo M.D. 01/10/2020 6:21 PM
[2020-01-10] MEDS ORDERED: ENOXAPARIN INJ 40 MG/0.4 ML SYR SQ SCH (21:00)
[2020-01-10] MEDS ORDERED: SERTRALINE HCL 50 MG TABLET PO SCH (21:00)
[2020-01-10] MEDS: ACETAMINOPHEN 325 MG TAB PO PRN (21:34)
[2020-01-10] MEDS: BACLOFEN 10 MG TAB PO SCH (21:35)
[2020-01-10] MEDS: PANTOprazole 40 MG TAB PO SCH (21:35)
[2020-01-11 06:12] LABS: Estimated Average Glucose 128 mg/dl; Hemoglobin A1C 6.1 % (4.5-5.6)
[2020-01-11 06:17] LABS: Appearance Urine Clear (Clear); Bacteria Urine Automated 4+ (Negative); Bilirubin Urine Negative (Negative); Blood Urine Negative (Negative); Color Urine Dark Yellow; Epithelial Cell Urine Auto >30 /lpf (0-5); Glucose Urine UA Negative (Negative); Ketones Urine Negative (Negative); Leukocyte Esterase Urine Negative (Negative); Nitrite Urine Positive (Negative); Protein Urine Negative (Negative); RBC Urine Automated 0-4 /hpf (0-4); Specific Gravity Urine 1.038 (1.000-1.030); Urobilinogen Urine Negative (Negative); pH Urine 5.5 (4.5-7.5)
[2020-01-11] MEDS ORDERED: LEVOTHYROXINE SODIUM 88 MCG TABLET PO SCH (06:30)
[2020-01-11 06:51] LABS: Basophils # (auto) 0.03 K/uL (0-0.2); Basophils % (auto) 0.6 %; Eosinophils # (auto) 0.21 K/uL (0-0.5); Hematocrit (blood only) 37.4 % (37-47); Hemoglobin 12.3 g/dL (12.0-16.0); Immature Granulocytes # (auto) 0.01 K/uL (0.00-0.02); Immature Granulocytes % (auto) 0.2 %; Lymphocytes # (auto) 2.01 K/uL (1.2-3.4); Lymphocytes % (auto) 38.6 %; Mean Corpuscular Hemoglobin 29.1 pg (25-34); Mean Corpuscular Hgb Conc 32.9 g/dL (32-36); Mean Corpuscular Volume 88.6 fL (80-100); Mean Platelet Volume 11.5 fL (7.4-10.4); Monocytes # (auto) 0.56 K/uL (0.11-0.59); Monocytes % (auto) 10.7 %; Neutrophils # (auto) 2.39 K/uL (1.4-6.5); Neutrophils % (auto) 45.9 %; Platelet Count 174 K/uL (130-400); RDW Coefficient of Variation 12.8 % (11.5-14.5); RDW Standard Deviation 41.4 fL (36.4-46.3); Red Blood Count 4.22 M/uL (4.2-5.4); White Blood Count 5.21 K/uL (4.8-10.8)
[2020-01-11 07:23] LABS: Albumin Level 3.5 gm/dl (3.4-5.0); BUN Creatinine Ratio 17.2 (10-20); Calcium 9.2 mg/dl (8.5-10.1); Est GFR (African American) 80.5; Est GFR (Non-African American) 69.5; Potassium 4.2 mmol/L (3.5-5.1)
[2020-01-11 07:25] LABS: Bilirubin,Total 0.5 mg/dl (0.2-1); Globulin 3.6 gm/dl (2.5-4.0); Total Protein 7.1 gm/dl (6.4-8.2)
[2020-01-11] MEDS: ASPIRIN 81 MG ECTAB PO SCH (08:45)
[2020-01-11] MEDS: LIDOCAINE 5% 1 PATCH TD SCH (08:46)
[2020-01-11] MEDS: BACLOFEN 10 MG TAB PO SCH (08:47)
[2020-01-11] MEDS: METOPROLOL SUCC 25MG EXT REL TAB PO SCH (08:48)
[2020-01-11] MEDS: PANTOprazole 40 MG TAB PO SCH (08:48)
[2020-01-11] MEDS: ACETAMINOPHEN 325 MG TAB PO PRN (08:56)
[2020-01-11] MEDS ORDERED: MELOXICAM 7.5 MG TAB PO SCH (09:00)
[2020-01-11] MEDS ORDERED: AMLODIPINE BESYLATE 5 MG TAB PO SCH (09:00)
--- NOTE | 2020-01-11 10:42 | Discharge Summary ---
Date of Service January 11, 2020 Admission HPI Per Admitting Provider The patient is a 65 years old female with past medical history of obesity, hypertension, panic disorder, claustrophobia, hyperlipidemia, hypothyroidism ,prediabetes who presents to the emergency room with a complaint of chest pain or rather discomfort that started this morning while patient felt very tense and lasted for 20 minutes. 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 Patient states that was seen chiropractor in the past and that her PCP recommended her to start on cyclobenzaprine for neck pain. Patient states that her claustrophobia is very severe and that she organize her life around not to ever being transported in the elevators since that is causing severe aggravation of her claustrophobia. Other than this patient reports being healthy. The chest pain patient describes as radiating to her both arms left and right and it was worse when she was putting her hands or arms down next to her body and it would alleviate if she keeps them above her head. Patient denies any recent trauma or injury or accident. After arriving to the emergency room patient had episode of elevated blood pressure of 207/93. Patient denies fever, chills, headache, shortness of breath, abdominal pain, frequency, urgency. Labs are reviewed: BC 7.07, hemoglobin 13.5, hematocrit 41, platelets 180, PT 10.3, INR 1, APTT 24.8, d-dimer 1140, sodium 140, potassium 3.8, chloride 106, carbon dioxide 28, anion gap 6, BUN 13, creatinine 0.87, GFR 71.4, glucose 108, calcium 9.4, magnesium 2, AST 21, ALT 25, alkaline phosphatase 88, troponins 0.015, Albumin 4.1, globulin 4, lipase 109, TSH 2.52. CTA of the chest :no evidence of pulmonary embolus in the main, lobar or segmental pulmonary arteries. There is no airspace consolidation pulmonary effusion. Decision was made to admit patient to PCU on telemetry for observation and to rule out atypical chest pain versus acute coronary syndrome. Admission Exam Per Admitting Provider Constitutional: WD/WN, vitals as above well developed and + obese Eyes: PERRL, conjunctivae normal, anicteric sclerae ENMT: external ear and nose normal, oropharynx normal Neck: trachea midline, no thyromegaly Respiratory: normal respiratory effort, lungs clear to auscultation Cardiovascular: RRR, no murmur, no edema Gastrointestinal (Abdomen): normal bowel sounds, soft, nontender, no hepatosplenomegaly Musculoskeletal: no cyanosis or clubbing, extremities motor strength 5/5 Skin: no rashes, warm and dry Neurologic: patellar DTR's 2+ bilat, sensation intact Psychiatric: A+Ox3, euthymic affect Lymphatic: no cervical or axillary lymphadenopathy Principal Diagnosis Atypical chest pain Discharge Exam Constitutional WD/WN, vitals as above well developed Eyes PERRL, conjunctivae normal, anicteric sclerae ENMT external ear and nose normal, oropharynx normal Neck trachea midline, no thyromegaly Respiratory normal respiratory effort, lungs clear to auscultation Cardiovascular RRR, no murmur, no edema Gastrointestinal (Abdomen) normal bowel sounds, soft, nontender, no hepatosplenomegaly Musculoskeletal no cyanosis or clubbing, extremities motor strength 5/5 Skin no rashes, warm and dry Neurologic patellar DTR's 2+ bilat, sensation intact CN's II-XI intact bilaterally Discharge Data Allergies Allergy/AdvReac Type Severity Reaction Status Date / Time No Known Allergies Allergy Unverified 01/10/20 12:01 Consultations 01/10/20 12:39 ED Decision to Admit Stat Ordered Studies 01/10/20 11:51 CT angio chest PE protocol Stat Hospital Course (1) Atypical chest pain: serial troponins negative. No EKG changes. Echo report pending. Consider outpatient stress testing (2) Hypertensive urgency: resolved. Continue usual home meds (3) Hypothyroidism: TSH normal. Continue continue levothyroxine 88 MCG's p.o. every morning. (4) Prediabetes: A1c 6.1. Normal glucose. No evidence of type 2 DM. (5) Hypercholesterolemia: Fasting lipid panel reveals total chol 204, LDL 133. Patient stated that she has elevated cholesterol but does not take any medication for it. (6) Neck pain: Patient states that she has chronic neck pain. She saw chiropractor in the past. Per patient cyclobenzaprine did not help. She also reports that meloxicam helps somewhat. Continue meloxicam 15 mg p.o. every morning. Xrays reveal cervical DDD. Consider outpatient cervical MRI. (7) Depression: Stable, continue sertraline 50 mg p.o. nightly. (8) GERD (gastroesophageal reflux disease): Stable, continue omeprazole 20 mg p.o. twice daily. Total Time Total Time Spent Total Time Spent (In Minutes): 35 minutes Total Time Includes: Examination of the Patient, Discharge Planning and Medication Reconciliation Discharge Plan Discharge Items Reason For Visit: ATYPICAL CHEST PAIN Condition on Discharge: Good Follow-up/Referrals: Araceli Valdes MD [Primary Care Provider] - Medications and DC Order Prescriptions: No Action aspirin 81 mg tablet,delayed release (DR/EC) 81 mg PO QAM RF: 0 cyclobenzaprine 10 mg tablet 10 mg PO BID PRN (Reason: Muscle Spasm) RF: 0 meloxicam 15 mg tablet 15 mg PO QAM RF: 0 omeprazole 20 mg capsule,delayed release(DR/EC) 20 mg PO BID RF: 0 metoprolol succinate 25 mg tablet extended release 24 hr 25 mg PO QAM RF: 0 sertraline 50 mg tablet 50 mg PO HS RF: 0 diazepam 5 mg tablet 5 mg PO BID PRN (Reason: Anxiety) RF: 0 levothyroxine [Synthroid] 88 mcg tablet 88 mcg PO QAM RF: 0 Krames/Other Patient Handouts: Prediabetes, A1C Admission Data Admit Date/Time: 01/10/20 15:16 Attending Provider: Mert Metz Admit Provider: Leo Moya Primary Care Provider: Araceli Valdes Other Providers: Leo Moya Coding Level of Care Code 94232 OBS Care - Discharge Diagnoses Atypical chest pain R07.89 Hypertensive urgency I16.0 Hypothyroidism E03.9 Prediabetes R73.03 Hypercholesterolemia E78.00 Neck pain M54.2 Depression F32.9 GERD (gastroesophageal reflux disease) K21.9 Time Spent (min) 35
--- NOTE | 2020-01-11 16:32 | XCELERA ---
[id number] [id number]
--- NOTE | 2020-01-12 07:43 | Electrocardiogram Report ---
Test Reason : Blood Pressure : / mmHG Vent. Rate : 060 BPM Atrial Rate : 060 BPM P-R Int : 150 ms QRS Dur : 088 ms QT Int : 434 ms P-R-T Axes : 058 015 023 degrees QTc Int : 434 ms Normal sinus rhythm Low voltage QRS Borderline ECG When compared with ECG of 10-JAN-2020 21:29, (unconfirmed) Nonspecific T wave abnormality, improved in Inferior leads Nonspecific T wave abnormality no longer evident in Anterior leads Confirmed by James Edwards [id number]) on 01/12/2020 7:42:58 AM Referred By: REFERRED SELF Confirmed By:James Edwards
== END 2020-01-11 11:34 | disposition home or self-care (01) ==
LOC: 2S 11:02 → ED 11:02 → SUATTDRO 15:16 → 2S 16:32